=== PATIENT | female | born 2000 | race Two or more races ===

== ENCOUNTER 2022-02-16 15:27 | Inpatient (IN) | payer MEDICAID ==
[~2022-02-16] VITALS: Ht 157.5 cm; Wt 135.0 kg
[2022-02-16] MEDS ORDERED: SODIUM CHLORIDE 0.9% 1,000 ML IV ONE (16:00)
[2022-02-16] MEDS ORDERED: ACETAMINOPHEN 325 MG TAB PO ONE (16:00)
[2022-02-16 16:40] LABS: Basophils # (auto) 0 10 ^3/uL (0-0.2); Basophils % (auto) 0.5 % (0.0-2.0); Eosinophils # (auto) 0.1 10 ^3/uL (0-0.8); Eosinophils % (auto) 0.7 % (0.0-7.0); Lymphocytes # (auto) 0.9 10 ^3/uL (0.4-5.4); Lymphocytes % (auto) 11.5 % (10.0-50.0); Mean Corpuscular Hgb Conc. 33.3 g/dL (32.0-36.0); Mean Corpuscular Volume 81.1 fL (80.0-100.0); Monocytes # (auto) 0.8 10 ^3/uL (0-1.3); Monocytes % (auto) 9.6 % (0.0-12.0); Neutrophils # (auto) 6.2 10 ^3/uL (1.6-8.6); Neutrophils % (auto) 77.7 % (37.0-80.0); Nucleated Red Blood Cells % 0.1 %; Red Blood Cells 5.55 10^6/uL (4.0-5.20); Red Cell Distribution Width 14.4 % (11.8-14.3)
[2022-02-16] MEDS ORDERED: MAGNESIUM SULFATE 1GM/100ML 100 ML IV ONE (16:45)
[2022-02-16] MEDS ORDERED: IPRATROPIUM BROM 0.5 MG/2.5ML INH SOL NEB ONE (16:45)
[2022-02-16] MEDS ORDERED: ALBUTEROL SULF 2.5 MG/0.5ML(0.5%) NEB SOLN NEB ONE (16:45)
[2022-02-16] MEDS ORDERED: DexAMETHasone SOD PHOS 10MG/1ML VIAL INJ IV ONE (16:45)
[2022-02-16 16:47] LABS: Albumin 3.6 g/dL (3.4-5.0); BUN/Creatinine Ratio 8.6; Calcium 9.2 mg/dL (8.5-10.1); Potassium 4.5 mmol/L (3.5-5.1)
[2022-02-16 16:50] LABS: Bilirubin, Total 0.4 mg/dL (0.2-1.0); Total Protein 7.1 g/dL (6.4-8.2)
[2022-02-16] MEDS ORDERED: HYDROcodone-ACET 10/325MG TAB PO ONE (18:15)
[2022-02-16] MEDS ORDERED: DOCUSATE SOD 100 MG CAP PO PRN (22:15)
[2022-02-16] MEDS ORDERED: ONDANSETRON HCL 4 MG/2 ML VIAL IV PRN (22:15)
[2022-02-16] MEDS ORDERED: HYDROcodone-ACET 5/325MG TAB PO PRN (22:15)
[2022-02-16] MEDS ORDERED: DEXTROSE (50%) 50ML SYRG IV PRN (22:15)
[2022-02-16] MEDS ORDERED: IBUPROFEN 600 MG TAB PO PRN (22:15)
[2022-02-16] MEDS ORDERED: cefTRIAXone 1GM/50ML D5W 50 ML IV ONE (22:15)
[2022-02-16 22:26] LABS: Urine Bacteria FEW /hpf (None Seen); Urine Blood Negative /uL (Negative); Urine Specific Gravity 1.029 (1.001-1.035); Urine WBC 1 /hpf (0 - 5)
[2022-02-16 23:11] VITALS: BP 130/78
[2022-02-16] MEDS ORDERED: MORPHINE SULFATE INJ 2 MG/ml SYRG IV PRN (23:15)
[2022-02-16] MEDS ORDERED: NITROGLYCERIN 0.4 MG SL TAB SL PRN (23:15)
[2022-02-17] MEDS: ACCU-CHEK COMFORT CURVE STRIP VI SCH ×5 (00:02→22:06)
[2022-02-17] MEDS: InsuLIN REG 1unit/0.01ml Soln (100units/ml) SC SCH ×6 (00:02→22:05)
[2022-02-17] MEDS: SODIUM CHLOR 0.9% PF (SALINE LOCK) 10ML VIAL/SYR IV SCH ×3 (06:23→21:56)
[2022-02-17] MEDS: methylPREDNISolone SOD SUCC 40 MG/ML VL IV SCH ×3 (06:32→21:49)
[2022-02-17 06:50] LABS: Basophils # (auto) 0 10 ^3/uL (0-0.2); Basophils % (auto) 0.4 % (0.0-2.0); Eosinophils # (auto) 0 10 ^3/uL (0-0.8); Mean Corpuscular Volume 83.2 fL (80.0-100.0); Monocytes # (auto) 0.4 10 ^3/uL (0-1.3)
[2022-02-17 06:52] LABS: Eosinophils % (auto) 0.1 % (0.0-7.0); Hematocrit 44.9 % (36.0-46.0); Hemoglobin 14.6 g/dL (12.2-16.2); Lymphocytes % (auto) 9.9 % (10.0-50.0); Mean Corpuscular Hgb Conc. 32.5 g/dL (32.0-36.0); Monocytes % (auto) 4.7 % (0.0-12.0); Neutrophils # (auto) 8.1 10 ^3/uL (1.6-8.6); Neutrophils % (auto) 84.9 % (37.0-80.0); Nucleated Red Blood Cells % 0.2 %; Red Cell Distribution Width 14.3 % (11.8-14.3); White Blood Cell 9.6 10^3/uL (4.4-10.8)
[2022-02-17] MEDS ORDERED: ACCU-CHEK COMFORT CURVE STRIP VI SCH (07:00)
[2022-02-17] MEDS ORDERED: InsuLIN REG 1unit/0.01ml Soln (100units/ml) SC SCH (07:00)
[2022-02-17 07:10] LABS: Potassium 4.7 mmol/L (3.5-5.1)
[2022-02-17 07:24] LABS: Albumin 3.4 g/dL (3.4-5.0); Bilirubin, Total 0.6 mg/dL (0.2-1.0)
[2022-02-17 09:02] VITALS: BP 128/64
[2022-02-17 09:05] VITALS: BP 128/64
[2022-02-17] MEDS: ZINC SULFATE 220mg CAP or TAB PO SCH (10:05)
[2022-02-17] MEDS: ASCORBIC ACID 500 MG TAB PO SCH ×2 (10:05→21:55)
[2022-02-17] MEDS: FAMOTIDINE (10MG/ML) 2ML VL IV SCH ×2 (12:31→21:49)
[2022-02-17] MEDS: cefTRIAXone 1GM/50ML D5W 50 ML IV SCH (12:31)
[2022-02-17 13:00] VITALS: BP 111/61
[2022-02-17 17:00] VITALS: BP 118/67
[2022-02-17 22:00] VITALS: BP 122/62
[2022-02-17] MEDS: ALBUTEROL SULF 2.5 MG/0.5ML(0.5%) NEB SOLN NEB PRN (22:52)
[2022-02-17] MEDS: IPRATROPIUM BROM 0.5 MG/2.5ML INH SOL NEB PRN (22:52)
[2022-02-18 05:00] VITALS: BP 100/49
[2022-02-18] MEDS: AZITHROMYCIN 500MG/ 250ML 250 ML IV SCH (06:21)
[2022-02-18] MEDS: SODIUM CHLOR 0.9% PF (SALINE LOCK) 10ML VIAL/SYR IV SCH ×3 (06:22→22:04)
[2022-02-18] MEDS: ACCU-CHEK COMFORT CURVE STRIP VI SCH ×4 (06:22→22:08)
[2022-02-18] MEDS: methylPREDNISolone SOD SUCC 40 MG/ML VL IV SCH ×3 (06:22→22:04)
[2022-02-18] MEDS: InsuLIN REG 1unit/0.01ml Soln (100units/ml) SC SCH ×5 (06:42→22:08)
[2022-02-18 09:00] VITALS: BP 121/65
[2022-02-18] MEDS: cefTRIAXone 1GM/50ML D5W 50 ML IV SCH (09:19)
[2022-02-18] MEDS: FAMOTIDINE (10MG/ML) 2ML VL IV SCH ×2 (09:20→22:03)
[2022-02-18] MEDS: ZINC SULFATE 220mg CAP or TAB PO SCH (09:20)
[2022-02-18] MEDS: ASCORBIC ACID 500 MG TAB PO SCH ×2 (09:20→22:03)
[2022-02-18 13:00] VITALS: BP 127/73
[2022-02-18 17:00] VITALS: BP 125/72
[2022-02-18] MEDS: ALBUTEROL SULF 2.5 MG/0.5ML(0.5%) NEB SOLN NEB PRN (18:58)
[2022-02-18] MEDS: IPRATROPIUM BROM 0.5 MG/2.5ML INH SOL NEB PRN (18:58)
[2022-02-19 00:23] VITALS: BP 88/32
[2022-02-19 06:01] VITALS: BP 94/38
[2022-02-19] MEDS: SODIUM CHLOR 0.9% PF (SALINE LOCK) 10ML VIAL/SYR IV SCH ×2 (06:03→14:23)
[2022-02-19] MEDS: InsuLIN REG 1unit/0.01ml Soln (100units/ml) SC SCH ×2 (06:39→12:54)
[2022-02-19] MEDS: ACCU-CHEK COMFORT CURVE STRIP VI SCH ×2 (06:39→12:50)
[2022-02-19] MEDS: methylPREDNISolone SOD SUCC 40 MG/ML VL IV SCH ×2 (06:39→14:23)
[2022-02-19 09:00] VITALS: BP 101/53
[2022-02-19] MEDS: ZINC SULFATE 220mg CAP or TAB PO SCH (09:17)
[2022-02-19] MEDS: cefTRIAXone 1GM/50ML D5W 50 ML IV SCH (09:17)
[2022-02-19] MEDS: ASCORBIC ACID 500 MG TAB PO SCH (09:17)
[2022-02-19] MEDS: FAMOTIDINE (10MG/ML) 2ML VL IV SCH (09:17)
[2022-02-19] MEDS: AZITHROMYCIN 500MG/ 250ML 250 ML IV SCH (10:30)
[2022-02-19 13:00] VITALS: BP 117/72
[2022-02-19 13:13] VITALS: BP 98/57
[2022-02-19] MEDS ORDERED: BUDE1AER5 IN (13:39)
[2022-02-19] MEDS ORDERED: PRED20TA2 PO (13:39)
[2022-02-19 15:13] VITALS: BP 117/72
== END 2022-02-19 17:25 | disposition home or self-care (01) | DRG 133 ==
LOC: ER 15:27 → TELE 23:08 → TELE-WESTW 02-17 09:04
PROVIDERS: ADMIT Nurse Practitioner Family; ATTEND Nurse Practitioner Acute Care
DX: J96.01 Acute respiratory failure with hypoxia (principal); J45.31 Mild persistent asthma with (acute) exacerbation; E11.9 Type 2 diabetes mellitus without complications; I10 Essential (primary) hypertension; Z20.822 Contact with and (suspected) exposure to COVID-19; R00.0 Tachycardia, unspecified; B34.9 Viral infection, unspecified; E66.01 Morbid (severe) obesity due to excess calories; E78.5 Hyperlipidemia, unspecified; Z86.16 Personal history of COVID-19; Z87.01 Personal history of pneumonia (recurrent)
CPT/HCPCS: 36415; 71045; 80053; 81001; 81025; 82962; 83735; 83880; 84484; 85025; 85379; 87426; 87804; 87807; 94640; 96361; 96365; 96375; G0378; J0696; J1100; J1815; J3490